=== PATIENT | female | born 1970 | race Two or more races ===

== ENCOUNTER → 2017-11-17 11:55 | Outpatient (CLI) | payer OTHER ==
[~2017-11-17 11:55] MED LIST: COZAAR100 MG PO; VITAMIN D400 UNI2 PO; ZERTEC PO
== END | disposition home or self-care (01) ==
LOC: RAD 11:55
DX: I10 Essential (primary) hypertension (principal)

== ENCOUNTER 2017-11-19 08:38 | Day surgery (SDC) | payer OTHER | END 2017-11-19 16:35 | disposition home or self-care (01) | LOC: CIR.AMB 08:38 | DX: N93.8 Other specified abnormal uterine and vaginal bleeding (principal) ==

== ENCOUNTER 2018-03-06 09:42 | Emergency (ER) | payer OTHER ==
[~2018-03-06] VITALS: Ht 167.6 cm; Wt 64.0 kg
== END 2018-03-06 14:33 | disposition home or self-care (01) ==
LOC: ER 09:42
DX: N93.8 Other specified abnormal uterine and vaginal bleeding (principal)